=== PATIENT | female | born 1995 ===

== ENCOUNTER 2020-12-02 10:21 | Emergency (ER) | payer BC ==
--- NOTE | 2020-12-02 12:12 | US ---
First trimester obstetrical ultrasound: Multiple real-time images were obtained transvaginally. Comparison: Previous pelvic study of 11/20/20. Small gestational sac is seen. Small amount of material is seen within this gestational sac. Very minimal subchorionic hemorrhage is seen. Maternal right ovary is seen. Maternal left ovary not visualized. Measurements: [place]-rump length: 0.87 cm - 6 weeks 6 days Heart rate: 140 bpm Impression: 1. Very small gestational sac approximating a gestational age of 6 weeks 6 days. 2. Very minimal subchorionic hemorrhage is noted. Diagnostic code #2
--- NOTE | 2020-12-02 12:25 | EDM.PDOC ---
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 The patient is with a LNMP of 10/12/20 and at 6 weeks gestation. She presents with spotting for the past 3 days. She has some pressure in her pelvic area but she thinks that is from her growing. She has no fever, chills, cough, congestion, runny nose, chest pain, shortness of breath, abdominal pain, nausea or vomiting. She has no diarrhea or dysuria. Onset: Gradual Duration: Day(s): (3) Location: Reports: Abdomen Quality: Reports: Pressure Severity: Mild Improves with: Reports: None Worsens with: Reports: None Associated Symptoms: Denies: Chest Pain, Cough, Fever/Chills, Headaches, Nausea/Vomiting, Shortness of Breath - Related Data Allergies Allergy/AdvReac Type Severity Reaction Status Date / Time No Known Allergies Allergy Verified 12/02/20 10:55 Home Meds: Home Meds . [No Known Home Meds] 12/02/20 [History] Past Medical History - Past Health History Medical/Surgical History: Denies Medical/Surgical History Social & Family History - Tobacco Use Tobacco Use Status *Q: Never Tobacco User - Caffeine Use Caffeine Use: Reports: None - Recreational Drug Use Recreational Drug Use: No ED ROS GENERAL - Review of Systems Review Of Systems: See Below Constitutional: Reports: No Symptoms HEENT: Reports: No Symptoms Respiratory: Reports: No Symptoms Cardiovascular: Reports: No Symptoms Endocrine: Reports: No Symptoms GI/Abdominal: Reports: Abdominal Pain. Denies: Diarrhea, Nausea, Vomiting : Reports: No Symptoms Musculoskeletal: Reports: No Symptoms Skin: Reports: No Symptoms ED EXAM - Physical Exam Exam: See Below Exam Limited By: No Limitations General Appearance: Alert, No Apparent Distress Ears: Normal External Exam Nose: Normal Inspection Head: Atraumatic, Normocephalic Neck: Normal Inspection Respiratory/Chest: No Respiratory Distress, Lungs Clear, Normal Breath Sounds Cardiovascular: Regular Rate, Rhythm, No Edema, No Murmur GI/Abdominal Exam: Soft, Non-Tender, No Organomegaly, No Mass (Female) Exam: Other (Small amount of dark blood in the vagina and the cervix is closed) Extremities: Normal Inspection Neurological: Alert, Oriented, No Motor/Sensory Deficits Course - Vital Signs Last Recorded V/S: Last Vital Signs Temp 98.2 F 12/02/20 10:30 Pulse 82 12/02/20 10:30 Resp 16 12/02/20 10:30 BP 102/75 12/02/20 10:30 Pulse Ox 100 12/02/20 10:30 - Orders/Labs/Meds Orders: Active Orders 24 hr Category Date Time Status Pelvic Exam, Set Up [RC] ASDIRECTED Care 12/02/20 10:49 Active PATIENT RETYPE [BBK] Routine Lab 12/02/20 11:22 Ordered Labs: Laboratory Tests 12/02/20 12/02/20 12/02/20 Range/Units 11:00 11:00 11:00 WBC 5.93 (3.98-10.04) K/mm3 RBC 4.73 (3.98-5.22) M/mm3 Hgb 10.6 L (11.2-15.7) gm/dl Hct 32.6 L (34.1-44.9) % MCV 68.9 L (79.4-94.8) fl MCH 22.4 L (25.6-32.2) pg MCHC 32.5 (32.2-35.5) g/dl RDW Std Deviation 38.1 (36.4-46.3) fL Plt Count 372 H (182-369) K/mm3 MPV 10.8 (9.4-12.3) fl HCG, Quant 3656.0 mIU/mL Blood Type A POSITIVE - Re-Assessments/Exams Free Text/Narrative Re-Assessment/Exam: 12/02/20 12:25 I ordered labs and an US. Her Hgb was a little low at 10.6. She has been low at 10.4 before. Her Hcg is 3656. Her Hcg was elevated at 3149 on the . That has gone up but not at a rate I would predict with a normal . Her US shows a very small gestational sac approximating a gestational age of 6 weeks 6 days. Very minimal subchorionic hemorrhage is noted. Departure - Departure Time of Disposition: 12:35 Disposition: Home, Self-Care 01 Condition: Good Clinical Impression: Vaginal bleeding in Qualifiers: Weeks of gestation: less than 8 weeks Qualified Code(s): Z3A.01 - Less than 8 weeks gestation of Subchorionic hematoma in first trimester Qualifiers: Fetus number: single or unspecified fetus Qualified Code(s): O41.8X10 - Other specified disorders of amniotic fluid and membranes, first trimester, not applicable or unspecified; O46.8X1 - Other antepartum hemorrhage, first trimester - Discharge Information *PRESCRIPTION DRUG MONITORING PROGRAM REVIEWED*: Not Applicable *COPY OF PRESCRIPTION DRUG MONITORING REPORT IN PATIENT GRISEL: Not Applicable Referrals: Oscar Izquierdo MD [Primary Care Provider] - 3 Days Forms: ED Department Discharge Additional Instructions: Take it easy until you see Dr Izquierdo. No heavy lifting over 20 pounds. No vaginal intercourse. Follow up with Dr Izquierdo this week. Please return if you are worse such as more bleeding or pain. Sepsis Event Note (ED) - Evaluation Sepsis Screening Result: No Definite Risk - Focused Exam Vital Signs: Vital Signs Temp Pulse Resp BP Pulse Ox 12/02/20 10:30 98.2 F 82 16 102/75 100 - My Orders Last 24 Hours: My Active Orders 12/02/20 10:49 Pelvic Exam, Set Up [RC] ASDIRECTED 12/02/20 11:22 PATIENT RETYPE [BBK] Routine - Assessment/Plan Last 24 Hours: My Active Orders 12/02/20 10:49 Pelvic Exam, Set Up [RC] ASDIRECTED 12/02/20 11:22 PATIENT RETYPE [BBK] Routine
== END 2020-12-02 12:47 | disposition home or self-care (01) ==
LOC: JD.ED 10:21
DX: O20.8 Other hemorrhage in early pregnancy (principal); Z3A.01 Less than 8 weeks gestation of pregnancy
CPT/HCPCS: 36415; 76817; 76817-26; 84702; 85027; 86900; 86901; 99283; 99284-25